=== PATIENT | female | born 1965 | race Two or more races ===

== ENCOUNTER → 2020-07-11 | Day surgery (SDC) | payer OTHER ==
--- OUTSIDE RECORDS SUMMARY | 2020-07-11 08:25 | XMS ---
:1965 [facility] Providers Name Role Phone DEANDRE HOLLOWAY Unavailable Unavailable JAM DREW Unavailable Unavailable Re-disclosure Warning The records that you are about to access may contain information from federally- assisted alcohol or drug abuse programs. If such information is present, then the following federally mandated warning applies: This information has been disclosed to you from records protected by federal confidentiality rules (42 CFR part 2). The federal rules prohibit you from making any further disclosure of this information unless further disclosure is expressly permitted by the written consent of the person to whom it pertains or as otherwise permitted by 42 CFR part 2. A general authorization for the release of medical or other information is NOT sufficient for this purpose. The Federal rules restrict any use of the information to criminally investigate or prosecute any alcohol or drug abuse patient.The records that you are about to access may contain highly sensitive health information, the redisclosure of which is protected by Article 27-F of the [facility] Public Health law. If you continue you may haveaccess to information: Regarding HIV / AIDS; Provided by facilities licensed or operated by the [facility] Office of Mental Health; or Provided by the [facility] Office for People With Developmental Disabilities. If such information is present, then the following [facility] mandated warning applies: This information has been disclosed to you from confidential records which are protected by state law. State law prohibits you from making any further disclosure of this information without the specific written consent of the person to whom it pertains, or as otherwise permitted by law. Any unauthorized further disclosure in violation of state law may result in a fine or senior living sentence or both. A general authorization for the release of medical or other information is NOT sufficient authorization for further disclosure. Encounters Encounter Providers Location Date Indications Data Source(s ) Outpatient Attender: DEANDRE Jany 06/27/2019 [facility] AMIEAdmitter: 12:42:00 PM [facility] DEANDRE HOLLOWAYReferrer: DEANDRE HOLLOWAY Outpatient Attender: JAM Carmichael 01/13/2019 [facility] 01:40:00 PM Medical C enter PAdmitter: JAM POLK PReferrer: JAM CIHJORDYN POLK P 01/03/2019 [facility] 09:37:00 AM [facility] Cent[facility] r EDT Insurance Providers Payer name Policy type Policy ID Covered Covered democrat's Policy P xiomara / Coverage democrat ID relationship to [place] Inf ormation type hong [employer] MEDICAID [id number] SP [id number] COMM PLAN HMO O [id number] 01 [id number] ESSENTIALS-COM MERCIAL UHC O HMO O [id number] 01 [id number] ESSENTIALS-COM MERCIAL Dental [facility] [id number] S [id number] Essential Plan 4 December Vision [id number] S [id number] Essential Plan 1 Medicaid [id number] S [id number] Regular Clinic Visit [place] [id number] S [id number] [facility] HMO Essential Plan 4 Problems, Conditions, and Diagnoses Code Display Name Description Problem Type Effective Data Sour ce(s) Dates R92.8 Other abnormal OTH ABN AND Diagnosis 06/27/2019 [facility] eph[facility] and inconclusive INCONCLUSIVE 12:42:00 PM [facility] Center findings on FINDINGS ON DX EDT diagnostic IMAGING OF BREAST imaging of breast 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 Diagnosis 01/13/2019 [facility] disorders of bone DENSITY AND 01:40:00 PM [facility] density and STRUCTURE, OTHER EDT structure, other SITE site Z12.31 Encounter for ENCNTR SCREEN Diagnosis 01/13/2019 [facility] screening MAMMOGRAM FOR 01:40:00 PM Medical Ce nter mammogram for MALIGNANT EDT malignant NEOPLASM OF neoplasm of BREAST breast H52.4 Presbyopia Presbyopia Diagnosis 12/09/2018 JOHN (M[facility] t 03:51:59 PM [facility]) H52.03 Hypermetropia, Hypermetropia, Diagnosis 12/09/2018 DURAN AY ([place] bilateral bilateral 03:51:59 PM [facility]) D31.02 Benign neoplasm Benign neoplasm Diagnosis 12/09/2018 KAELA ELLIOTT ([place] of left of left 03:51:59 PM [place] conjunctiva conjunctiva [facility]) H04.123 Dry eye syndrome Dry eye syndrome Diagnosis 12/09/2018 TINO HAIR ([place] of bilateral of bilateral 03:51:59 PM [place] lacrimal glands lacrimal glands [facility]) Social History Code Duration Value Status Description Data Source(s ) Smoking Unknown if ever completed Unknown if ever Dilip [facility] smoked [facility]
--- NOTE | 2020-07-12 19:09 | PATH ---
Surgical Pathology Report Patient Name: TETO FERNÁNDEZ [facility]. Rec. #: [id number] /Age/Gender: 1965 (Age: 54) / F Account: [id number] Location: [facility] [place] Taken: 07/11/2020 Received: 07/11/2020 Reported: 07/12/2020 Physicians: Jeffrey Ken M.D. Specimen(s) Received A: LEFT BREAST SPECIMEN WITH CALCIFICATIONS B: LEFT BREAST SPECIMEN WITHOUT CALCIFICATIONS Clinical History Nonpalpable lesion Mammographic findings: Microcalcification, suspicious Final Diagnosis A. LEFT BREAST SPECIMEN WITH CALCIFICATIONS, STEREOTACTIC BIOPSY: BENIGN BREAST TISSUE WITH PROLIFERATIVE FIBROCYSTIC CHANGES INCLUDING MILD USUAL DUCTAL HYPERPLASIA (UDH), APOCRINE METAPLASIA, STROMAL FIBROSIS, AND CALCIFICATIONS. Comment: Immunohistochemical stain E-Cadherin performed and interpreted at [facility] shows no atypical lobular proliferation. Positive and negative controls (internal if applicable) show appropriate results. B. LEFT BREAST SPECIMEN WITHOUT CALCIFICATIONS, STEREOTACTIC BIOPSY: BENIGN BREAST TISSUE WITH STROMAL FIBROSIS. Electronically Signed Iain Orosco M.D. Gross Description A. Received in formalin labeled "left breast with calcifications," is a 2.0 x 1.8 x 0.3 cm aggregate of multiple acuña-yellow, irregular to cylindrical portions of fibroadipose tissue. The formalin is filtered and the specimen is entirely submitted in one cassette. B. Received in formalin labeled "left breast without calcifications," are 3 acuña-yellow, cylindrical portions of fibroadipose tissue ranging from 1.0-1.7 cm in length and averaging 0.3 cm in diameter. The specimens are submitted in toto in one cassette. Time to formalin fixation: 5 minutes Total formalin fixation time: Approximately 8 hours. DL/07/11/2020 saudi/07/11/2020
== END | disposition home or self-care (01) ==
LOC: FMAMMOTONE 08:11
PROVIDERS: ATTEND Obstetrics & Gynecology
PROC: 0HBU3ZX Excision of Left Breast, Percutaneous Approach, Diagnostic (ICD-10-PCS; principal; 2020-07-11)
DX: N60.32 Fibrosclerosis of left breast (principal); N60.82 Other benign mammary dysplasias of left breast; N64.89 Other specified disorders of breast; R92.1 Mammographic calcification found on diagnostic imaging of breast
CPT/HCPCS: 19081; 76098-TC-FY; 88305-TC; 88342-TC